=== PATIENT | female | born 1950 | race Caucasian/White ===

== ENCOUNTER → 2019-05-04 18:18 | Outpatient (CLI) | payer MEDICARE ==
[2014-07-27 07:40] VITALS: BMI 42.6
[~2019-05-04 18:18] MED LIST: CYMBALTA60 MG PO; HYDROCODONE-APA1 TAB PO; NEXIUM40 MG PO; ZESTORETIC 20/21 TAB PO
== END | disposition home or self-care (01) ==
LOC: D.LABREF 18:18
PROVIDERS: ATTEND Orthopaedic Surgery
DX: M16.11 Unilateral primary osteoarthritis, right hip (principal)

== ENCOUNTER 2019-05-18 19:32 | Inpatient (IN) | payer MEDICARE ==
[~2019-05-18] VITALS: Ht 160 cm; Wt 90.7 kg
[2019-06-14] MEDS ORDERED: OMEPRAZOLE20 M1 PO (14:09)
[2019-06-14] MEDS ORDERED: FUROSEMIDE20 MG PO (14:09)
[2019-06-14] MEDS ORDERED: CENTRUM SILVER1 EAC3 PO (14:10)
[2019-06-14] MEDS ORDERED: K-DUR20 MEQ PO (14:10)
[2019-06-15 13:09] LABS: BASOPHILS 0.1 % (0-2); EOSINOPHILS 1.7 % (0-7); HEMATOCRIT 39.9 % (36.0-48.0); HEMOGLOBIN 12.3 g/dL (12-16); IMMATURE GRANULOCYTES 0.1 % (0-5); LYMPHOCYTES 24.1 % (15-50); MCH 28.6 pg (26.0-34.0); MCHC 30.8 g/dL (31.0-37.0); MCV 92.8 fL (80.0-100.0); MEAN PLATELET VOLUME 10.2 fL (7.4-10.4); MONOCYTES 8.6 % (2-11); NEUTROPHILS 65.4 % (40-80); RDW 14.8 % (11.5-14.5)
[2019-06-15 13:11] LABS: PLATELET COUNT 325 10x3/uL (130-400)
[2019-06-15 13:18] LABS: APTT 31.2 SECONDS (22.8-39.4); INR 1.03 (0.85-1.17); PROTIME 13.5 SECONDS (11.6-15.0)
[2019-06-15 13:20] LABS: ANION GAP 15.9 mmol/L (8-16); CALCIUM 9.7 mg/dL (8.5-10.1); CARBON DIOXIDE 26.8 mmol/L (21.0-32.0); CREATININE - SERUM 2.7 mg/dL (0.6-1.3); POTASSIUM - SERUM 4.7 mmol/L (3.5-5.1)
[2019-06-15 14:03] LABS: BILIRUBIN NEGATIVE (NEGATIVE); GLUCOSE NEGATIVE (NEGATIVE); KETONE NEGATIVE (NEGATIVE); NITRITE NEGATIVE (NEGATIVE); UROBILINOGEN NORMAL (NORMAL)
[2019-06-15 14:05] LABS: BACTERIA MODERATE /hpf (NEGATIVE); EPITHELIAL CELLS 0-5 /hpf (0-5); WHITE CELLS - URINE 0-5 /hpf (NEGATIVE)
[2019-06-20] VITALS (7 sets, daily range): BP systolic 86–121; BP diastolic 53–85; BMI 37.2; BMI 35.5
--- NOTE | 2019-06-20 14:35 | NUR ---
RECEIVED TO ROOM 2212 VIA BED FROM PACU. A/O X3. C/O INTENSE PAIN TO RIGHT HIP LEVEL 10. REPOSITIONED IN BED FOR COMFORT. ICE APPLIED TO SAME WILL MONITOR. DRESSING TO RIGHT HIP IS DRY AND INTACT. SKIN INTACT OTHERWISE. VSS. DENIES NEEDS.
--- NOTE | 2019-06-20 15:22 | NUR ---
PERCOCET NOT WORKING FOR PAIN MANAGEMENT. DILAUDID SOUS CHEF KITCHEN MANAGER INITIATED AT THIS TIME. PATIENT INSTRUCTED IN USE OF SAME WITH RETURN DEMONSTRATION. WILL MONITOR.
--- NOTE | 2019-06-20 18:12 | NUR ---
ATE ALL OF SUPPER. REPORTS PAIN WELL MANAGED WITH USE OF SERVICE MANAGER. DENIES NEEDS. NO CHANGES NOTED.
--- NOTE | 2019-06-20 19:40 | NUR ---
PATIENT RESTING IN BED WITH NO S/S OF DISTRESS. OFFERED PATIENT BEDPAN AND SHE DECLINED AT THIS TIME. BED IN LOWEST POSITION AND CALL LIGHT WITHIN REACH. ENCOURAGED THE PATIENT TO CALL IF SHE HAS NEEDS. WILL CONTINUE TO MONITOR.
[2019-06-21] VITALS (7 sets, daily range): BP systolic 81–119; BP diastolic 54–70; Ht 160 cm; Wt 90.7 kg
--- NOTE | 2019-06-21 00:11 | NUR ---
PATIENT VOIDED APROX 300ML
[2019-06-21 07:04] LABS: HEMATOCRIT 34.8 % (36.0-48.0); HEMOGLOBIN 10.6 g/dL (12-16); MCH 28.6 pg (26.0-34.0); MCHC 30.5 g/dL (31.0-37.0); MCV 94.1 fL (80.0-100.0); MEAN PLATELET VOLUME 10.4 fL (7.4-10.4); RBC 3.7 10x6/uL (4.00-5.40); RDW 15.1 % (11.5-14.5); WBC 8.3 10x3/uL (4.8-10.8)
--- NOTE | 2019-06-21 08:30 | NUR ---
AWAKE AND ALERT. ORIENTED X3. NO C/O AT THIS TIME. REPORTS GOOD PAIN MANAGEMENT WITH USE OF QUALITY CONTROL COORDINATOR. LUNGS ARE CLEAR BILATERALLY, NO COUGH NOTED. REINSTRUCTED IN USE OF IS WA WITH RETURN DEMONSTRATION. SKIN IS INTACT WTIHOUT REDNESS EXCEPT INCISION TO RIGHT HIP WHICH HAS A DRY INTACT DRESSING IN PLACE. ATE ALMOST ALL OF BREAKFAST TRAY. DENIES NEEDS. IV TO LEFT HAND IS PATENT WITHOUT REDNESS AT INSERTION SITE.
--- NOTE | 2019-06-21 10:00 | NUR ---
UP IN CHIAR AT BEDSIDE WITH PT. DID WELL. NO C/O AT THIS TIME. DENIES NEEDS.
--- NOTE | 2019-06-21 10:32 | NUR ---
REHAB PRESCREENING Rehab referral received and chart reviewed. Ms. Marin has [facility] as her provider. She will need an OT evaluation ordered. Rehab will begin prior authorization process when evaluations are documented. Thank you for this referral! Darling Mcqueen, RESTAURANT CREW PERSON Rehab PD
--- NOTE | 2019-06-21 11:45 | NUR ---
UP TO BSC WITH ONE PERSON MIN ASSIST. VOIDED CLEAR YELLOW URINE WITHOUT DIFFICULTY. SPECIMEN SENT TO LAB.
[2019-06-21 12:50] LABS: BILIRUBIN NEGATIVE (NEGATIVE); GLUCOSE NEGATIVE (NEGATIVE); KETONE NEGATIVE (NEGATIVE); NITRITE NEGATIVE (NEGATIVE); SPECIFIC GRAVITY 1.015 (1.005-1.020); UROBILINOGEN NORMAL (NORMAL)
--- NOTE | 2019-06-21 16:33 | NUR ---
UP TO BR WITH ONE PERSON MIN ASSIST. HAD MODERATE AMOUNT OF DARK STOOL. REPOSITIONED IN BED FOR COMFORT.
--- NOTE | 2019-06-21 17:00 | NUR ---
REFUSED SUPPER TRAY. CONTINUES TO FEEL SICK TO HER STOMACH. DENIES THAT IT IS NAUSEA JUST FEELS SICK. WILL CALL AND GET HER HOME MED STARTED.
--- NOTE | 2019-06-21 17:49 | NUR ---
SPOKE WITH DR. GARCIA. NEW ORDERS FOR PRILOSEC RECEIVED. GIVEN TO PATIENT WILL MONITOR.
--- NOTE | 2019-06-21 18:28 | NUR ---
HAD APPROXIMATELY 150 CC VERY DARK BROWN EMESIS. NO ODOR OF BLOOD AND DOESN'T LOOK LIKE BLOOD. WILL MONITOR. GIVNE 4MG ZOFRAN SUBLINGUAL FOR NAUSEA WILL MONITOR.
--- NOTE | 2019-06-21 19:43 | NUR ---
ASSISTED PATIENT TO AND FROM RR. PATIENT VOIDED. VSS. PATIENT DENIES OTHER NEEDS AT THIS TIME. BED IN LOWEST POSITION AND CALL LIGHT WITHIN REACH. ENCOURAGED THE PATIENT TO CALL IF SHE HAS NEEDS. WILL CONTINUE TO MONITOR.
--- NOTE | 2019-06-21 20:36 | NUR ---
ADMINISTERED MEDS PER ORDERS. PATIENT DENIES OTHER NEEDS AT THIS TIME. WILL CONTINUE TO MONITOR.
[2019-06-22 04:17] VITALS: BP 110/74
[2019-06-22 06:59] LABS: HEMATOCRIT 34.1 % (36.0-48.0); HEMOGLOBIN 10.4 g/dL (12-16); MCH 28.6 pg (26.0-34.0); MCHC 30.5 g/dL (31.0-37.0); MCV 93.7 fL (80.0-100.0); MEAN PLATELET VOLUME 10.3 fL (7.4-10.4); RBC 3.64 10x6/uL (4.00-5.40); RDW 15.1 % (11.5-14.5); WBC 7.2 10x3/uL (4.8-10.8)
[2019-06-22 07:38] VITALS: BP 98/61
--- NOTE | 2019-06-22 10:48 | NUR ---
PT SITTING IN CHAIR AT BEDSIDE AFTER AMBULATING PER THERAPY. STATES PAIN IS CONTROLLABLE. FALL PRECAUTIONS IN PLACE. CALL LIGHT IN REACH. DRESSING TO RIGHT HIP IS CLEAN DRY AND INTACT. STATES STOMACH IS FEELING BETTER TODAY THAN YESTERDAY. HOPING FOR DISCHARGE TO REHAB TODAY. USED INCENTIVE SPIROMETY SEVERAL TIMES THIS AM AND IS PULLING APPROX 1500 CC.
[2019-06-22 11:13] VITALS: BP 108/73
--- NOTE | 2019-06-22 14:16 | NUR ---
Reviewed patient's chart for the ARU today. She is [employer] and would require a preauth. She has ambulated 40 feet with min assist and is able to perform all her ADL's with min assist. She has not had any surgical complications and has no medical necessity that requires a physician to monitor at least three times a week. Discussed at length with the CM Naa Pool RN. Margie Condon RN Clinical Liaison, Rehab
--- NOTE | 2019-06-22 14:24 | NUR ---
OT NOTE: PT COMPLETED SIT TO STAND WITH CGA/MIN A, PT COMPLETED ADL MOB WITH RW WITH MIN A. PT COMPLETED TOILET HYGIENE TASKS WITH MIN A/CGA.. PT COMPLETED HAND HYGIENE WITH SBA. 0-859 THANK YOU,MIRIAM OLIVO
[2019-06-22 15:46] VITALS: BP 95/56
--- NOTE | 2019-06-22 19:20 | NUR ---
LYING IN BED WITH EYES CLOSED. RESP EVEN AND NONLABORED. NO DISTRESS. BED ALARM ON. CL IN REACH.
--- NOTE | 2019-06-22 19:59 | MORECARE ---
CASE MANAGEMENT DISCHARGE SUMMARY PATIENT: JOSE RAMON GUARDADO UNIT: [id number] ADM DATE: 06/20/19 AGE: 68 : 50 SEX: F ROOM/BED: D.1212 AUTHOR: VICK HODGE PHYSICIAN: REFERRING PHYSICIAN: SHELBY GARCIA MD DATE OF SERVICE: 06/22/19 Discharge Plan Patient Name: JOSE RAMON GUARDADO Facility: [facility]:[place] : 1950 Planned Disposition: Inpatient Rehab Anticipated Discharge Date: Discharge Date: Expected LOS: Initial Reviewer: [email or web address] Initial Review Date: 06/20/2019 Generated: 06/22/19 8:59 pm Patient Name: JOSE RAMON GUARDADO Page [id number] at 1958 All edits/amendments must be made on the electronic document DICTATION DATE: 06/22/191958 REAL ESTATE UNDERWRITER: BA 06/22/191958 RPT#: [id number] DC DATE: STATUS: ADM IN [facility] [address] [place] [address] END OF REPORT
[2019-06-22 20:00] VITALS: BP 111/72
--- NOTE | 2019-06-22 20:06 | MORECARE ---
CASE MANAGEMENT DISCHARGE SUMMARY PATIENT: JOSE RAMON GUARDADO UNIT: [id number] ADM DATE: 06/20/19 AGE: 68 : 50 SEX: F ROOM/BED: D.1212 AUTHOR: AYESHA,DOC PHYSICIAN: REFERRING PHYSICIAN: SHELBY GARCIA MD DATE OF SERVICE: 06/22/19 Discharge Plan Patient Name: JOSE RAMON GUARDADO Facility: [facility]:[place] : 1950 Planned Disposition: Inpatient Rehab Anticipated Discharge Date: Discharge Date: Expected LOS: Initial Reviewer: [email or web address] Initial Review Date: 06/20/2019 Generated: 06/22/19 9:06 pm Comments DCP- Discharge Planning Updated by [id number]: Naa Pool on 06/22/19 7:[address] Patient Name: JOSE RAMON GUARDADO Admission Status: Elective Accout number: [id number] Admission Date: 06-20-2019 : 1950 Admission Diagnosis:UNILATERAL PRIMARY OSTEOARTHRITIS, RIGHT HIP Attending: SHELBY GARCIA Current LOS: 2 Anticipated DC Date: Planned Disposition: Inpatient Rehab Primary Insurance: [employer] ADV Discharge Planning Comments: CM met with patient to complete initial dc planning assessment. CM educated patient on the CM role and verbal consent given by patient to complete assessment. Patient lives at home alone where she is independent with her care. At discharge patient plans to return home and feels this is a safe discharge. CM discussed availability of home health, rehab services, and medical equipment. Her son will be her local intermodal truck driver home. Patient has a walker, bedside commode and shower stool. [facility] signed for inpatient rehab Patient denied known discharge needs at this time. CM will continue to follow and will assist as needed with dc plans/needs. Road Mixer Operator: Naa Pool DCPIA - Discharge Planning Initial Assessment Updated by [id number]: Naa Pool on 06/22/19 8:01 pm * Is the patient Alert and Oriented? Yes * How many steps to enter\exit or inside your home? ramp * PCP HURST * Pharmacy [facility] * Preadmission Environment Home Alone * ADLs Independent * Other Equipment BSC, WALKER, SC * List name and contact numbers for known caregivers / representatives who currently or will assist patient after discharge: ZA ZHAO LINDA - [phone] * Verbal permission to speak to the caregivers and representatives has been obtained from the patient. Yes * Community resources currently utilized None * Additional services required to return to the preadmission environment? No * Can the patient safely return to the preadmission environment? Yes * Has this patient been hospitalized within the prior 30 days at any hospital? No Last DP export: 06/22/19 6:59 pm Patient Name: JOSE RAMON GUARDADO Page 13613 at 2006 All edits/amendments must be made on the electronic document DICTATION DATE: 06/22/192005 ACADEMIC AFFAIRS DEAN: BA 06/22/192005 RPT#: [id number] DC DATE: STATUS: ADM IN [facility] [address] [place] [address] END OF REPORT
--- NOTE | 2019-06-22 20:13 | MORECARE ---
CASE MANAGEMENT DISCHARGE SUMMARY PATIENT: JOSE RAMON GUARDADO UNIT: [id number] ADM DATE: 06/20/19 AGE: 68 : 50 SEX: F ROOM/BED: D.1212 AUTHOR: AYESHA,DOC PHYSICIAN: REFERRING PHYSICIAN: SHELBY GARCIA MD DATE OF SERVICE: 06/22/19 Discharge Plan Patient Name: JOSE RAMON GUARDADO Facility: [facility]:[place] : 1950 Planned Disposition: Inpatient Rehab Anticipated Discharge Date: Discharge Date: Expected LOS: Initial Reviewer: [email or web address] Initial Review Date: 06/20/2019 Generated: 06/22/19 9:12 pm Comments DCP- Discharge Planning Updated by [id number]: Naa Pool on 06/22/19 7:[address] CM received a call from Margie earlier today that patient has been denied inpatient rehab. CM will need to speak to patient regarding a new plan for discharge. CM will continue to follow and assist as needed with discharge planning / needs. DCP- Discharge Planning Updated by [id number]: Naa Pool on 06/22/19 7:[address] Patient Name: JOSE RAMON GUARDADO Admission Status: Elective Accout number: [id number] Admission Date: 06-20-2019 : 1950 Admission Diagnosis:UNILATERAL PRIMARY OSTEOARTHRITIS, RIGHT HIP Attending: SHELBY GARCIA Current LOS: 2 Anticipated DC Date: Planned Disposition: Inpatient Rehab Primary Insurance: [employer] ADV Discharge Planning Comments: CM met with patient to complete initial dc planning assessment. CM educated patient on the CM role and verbal consent given by patient to complete assessment. Patient lives at home alone where she is independent with her care. At discharge patient plans to return home and feels this is a safe discharge. CM discussed availability of home health, rehab services, and medical equipment. Her son will be her dedicated intermodal truck driver home. Patient has a walker, bedside commode and shower stool. [facility] signed for inpatient rehab Patient denied known discharge needs at this time. CM will continue to follow and will assist as needed with dc plans/needs. Process Excellence Manager: Naa Pool DCPIA - Discharge Planning Initial Assessment Updated by [email or web address]: Naa Pool on 06/22/19 8:01 pm * Is the patient Alert and Oriented? Yes * How many steps to enter\exit or inside your home? ramp * PCP REGINALD * Pharmacy [facility] * Preadmission Environment Home Alone * ADLs Independent * Other Equipment BSC, WALKER, SC * List name and contact numbers for known caregivers / representatives who currently or will assist patient after discharge: ZA MCKEON - [phone] * Verbal permission to speak to the caregivers and representatives has been obtained from the patient. Yes * Community resources currently utilized None * Additional services required to return to the preadmission environment? No * Can the patient safely return to the preadmission environment? Yes * Has this patient been hospitalized within the prior 30 days at any hospital? No Coverage Notice Reviewer: [id number] - Naa Pool Notice Issued Date-Time: 06/22/2019 20:07 Notice Type: Patient Choice Letter Notice Delivered To: Patient Relationship to Patient: Self Chicken Dresser Name: Delivery Method: HAND - Hand Delivered Jeannette Days: Prior Verbal Notification: Recipient Understood Notice: Yes Recipient Signature: Yes Med Rec Note Co-signed by Attending: Coverage Notice Comment: inpatient rehab Last DP export: 06/22/19 7:06 pm Patient Name: JOSE RAMON GUARDADO Page [id number] at 2013 All edits/amendments must be made on the electronic document DICTATION DATE: 06/22/192011 AIRPLANE CAPTAIN: BA 06/22/19 2012 RPT#: [id number] DC DATE: STATUS: ADM IN [facility] [address] [place] [address] END OF REPORT
--- NOTE | 2019-06-22 21:00 | NUR ---
ASSISTED UP TO BR TO VOID. C/O PAIN IN RT HIP 6. MEDICATED WITH PERCOCET ORDERED. DRSG TO RT HIP IS C/D/I. EDEMA NOTED TO BLE. SCDS IN USE BILAT. AMB WITH WALKER WITH STANDBY ASSIST. SALINE LOCK NOTED TO LT HAND. RESP EVEN AND NONLABORED. ENCOURAGED TO USE I.S. SHE VERBALIZED UNDERSTANDING. BED ALARM IN USE. ALERT AND ORIENTED X4. SR ELEVATED X2. CL IN REACH.
[2019-06-23 00:30] VITALS: BP 118/61
--- NOTE | 2019-06-23 01:16 | NUR ---
ASSISTED UP TO BR TO VOID. MEDICATED WITH PERCOCET FOR C/O RT HIP PAIN. CL IN REACH. GREGORIO ALARM ON.
[2019-06-23 04:32] VITALS: BP 97/56
--- NOTE | 2019-06-23 04:47 | NUR ---
RESTING IN BED WITH EYES CLOSED. RESP NONLABORED. NO DISTRESS. CL IN REACH.
--- NOTE | 2019-06-23 07:30 | NUR ---
AWAKE AND ALERT. ORIENTED X3. NO C/O AT THIS TIME. LUNGS ARE CLEAR BILATERALLY NO COUGH NOTED. NO NAUSEA THIS AM. SKIN IS INTACT WITHOUT REDNESS EXCEPT INCISION TO RIGHT HIP WHICH HAS A DRY INTACT DRESSING IN PLACE. SL TO LEFT HAND IS PATENT WITHOUT REDNESS AT INSERTION SITE. DENIES NEEDS.
[2019-06-23 07:43] VITALS: BP 128/62; BP 98/63
[2019-06-23] MEDS ORDERED: PERCOCET 10-321 EAC1 PO (08:59)
[2019-06-23] MEDS ORDERED: ELIQUIS2.5 MG PO (08:59)
--- NOTE | 2019-06-23 09:15 | NUR ---
ATE MOST OF BREAKFAST. TOOK AM MEDS WITHOUT DIFFICULTY. UP TO CHAIR AT BEDSIDE.. DENIES NEEDS.
--- NOTE | 2019-06-23 11:02 | NUR ---
AMBULATED TO BR WITH RW SBA. VOIDED WITHOUT DIFFICULTY. POSITIONED IN CHAIR AT BEDSIDE FOR COMFORT. DENIES NEEDS.
[2019-06-23 11:44] VITALS: BP 101/72
--- NOTE | 2019-06-23 12:16 | MORECARE ---
CASE MANAGEMENT DISCHARGE SUMMARY PATIENT: JOSE RAMON GUARDADO UNIT: [id number] ADM DATE: 06/20/19 AGE: 68 : 50 SEX: F ROOM/BED: D.1212 AUTHOR: AYESHA,DOC PHYSICIAN: REFERRING PHYSICIAN: SHELBY GARCIA MD DATE OF SERVICE: 06/23/19 Discharge Plan Patient Name: JOSE RAMON GUARDADO Facility: [facility]:[place] : 1950 Planned Disposition: Inpatient Rehab Anticipated Discharge Date: Discharge Date: Expected LOS: Initial Reviewer: [id number] Initial Review Date: 06/20/2019 Generated: 06/23/19 1:16 pm Comments DCP- Discharge Planning Updated by [id number]: Naa Pool on 06/22/19 7:[address] CM received a call from Margie earlier today that patient has been denied inpatient rehab. CM will need to speak to patient regarding a new plan for discharge. CM will continue to follow and assist as needed with discharge planning / needs. DCP- Discharge Planning Updated by [id number]: Naa Pool on 06/22/19 7:[address] Patient Name: JOSE RAMON GUARDADO Admission Status: Elective Accout number: [id number] Admission Date: 06-20-2019 : 1950 Admission Diagnosis:UNILATERAL PRIMARY OSTEOARTHRITIS, RIGHT HIP Attending: SHELBY GARCIA Current LOS: 2 Anticipated DC Date: Planned Disposition: Inpatient Rehab Primary Insurance: [employer] ADV Discharge Planning Comments: CM met with patient to complete initial dc planning assessment. CM educated patient on the CM role and verbal consent given by patient to complete assessment. Patient lives at home alone where she is independent with her care. At discharge patient plans to return home and feels this is a safe discharge. CM discussed availability of home health, rehab services, and medical equipment. Her son will be her bus van driver home. Patient has a walker, bedside commode and shower stool. [facility] signed for inpatient rehab Patient denied known discharge needs at this time. CM will continue to follow and will assist as needed with dc plans/needs. Wet Machine Cutter: Naa Pool DCPIA - Discharge Planning Initial Assessment Updated by [email or web address]: Naa Pool on 06/22/19 8:01 pm * Is the patient Alert and Oriented? Yes * How many steps to enter\exit or inside your home? ramp * PCP REGINALD * Pharmacy [facility] * Preadmission Environment Home Alone * ADLs Independent * Other Equipment BSC, WALKER, SC * List name and contact numbers for known caregivers / representatives who currently or will assist patient after discharge: ZA MCKEON - [phone] * Verbal permission to speak to the caregivers and representatives has been obtained from the patient. Yes * Community resources currently utilized None * Additional services required to return to the preadmission environment? No * Can the patient safely return to the preadmission environment? Yes * Has this patient been hospitalized within the prior 30 days at any hospital? No External Providers External Provider: [facility] Next Contact Date: Service Request Date: Service Type: Resolution: Reviewer: Comments: External Provider: [facility] Next Contact Date: Service Request Date: Service Type: Resolution: Reviewer: Comments: Coverage Notice Reviewer: [id number] - Naa Pool Notice Issued Date-Time: 06/22/2019 20:07 Notice Type: Patient Choice Letter Notice Delivered To: Patient Relationship to Patient: Self Diecast Machine Operator Name: Delivery Method: HAND - Hand Delivered Jeannette Days: Prior Verbal Notification: Recipient Understood Notice: Yes Recipient Signature: Yes Med Rec Note Co-signed by Attending: Coverage Notice Comment: inpatient rehab Last DP export: 06/22/19 7:13 pm Patient Name: JOSE RAMON GUARDADO Page [id number] at 1216 All edits/amendments must be made on the electronic document DICTATION DATE: 06/23/19 1216 PARTY PLAN SALES AGENT: BA 06/23/19 1216 RPT#: [id number] DC DATE: STATUS: ADM IN [facility] [address] [place] [address] END OF REPORT
--- NOTE | 2019-06-23 12:43 | NUR ---
ALL DISCHARGE INSTRUCTIONS COVERED WITH PT. ALL QUESTIONS ANSWERED. PT REQUESTS PT TO EDUCATE ON APPROPRIATE MANEUVERING OF STAIRS PRIOR TO LEAVING. PT PAGED AND NOTIFIED OF PT REQUEST. PIV TO LEFT HAND REMOVED CATHETER TIP INTACT. DRESSING APPLIED. ALL DISCHARGE PAPERS SIGNED AND PLACED IN PT CHART. PT DENIES FURTHER QUESTIONS/CONCERNS/NEEDS AT THIS TIME.
--- NOTE | 2019-06-23 13:43 | NUR ---
[place] WITH PT AT BEDSIDE ADDRESSING CONCERNS PERTAINING TO STAIRS/STEPS AT HOME. DRESSING CHANGED PER ORDER. EXTRA SUPPLIES WITH PT BELONGINGS.
--- NOTE | 2019-06-23 15:26 | NUR ---
PT DAUGHTER IN LAW AT FRONT ENTRANCE. PT ESCORTED FROM ROOM VIA WHEELCHAIR. ALL PERSONAL BELONGINGS WITH PT. PT THANKS THIS NURSE FOR CARE GIVEN DURING THIS SHIFT AND DENIES FURTHER QUESTIONS/CONCERNS/NEEDS AT THIS TIME.
--- NOTE | 2019-06-23 18:28 | MORECARE ---
CASE MANAGEMENT DISCHARGE SUMMARY PATIENT: JOSE RAMON GUARDADO UNIT: [id number] ADM DATE: 06/20/19 AGE: 68 : 50 SEX: F ROOM/BED: D.1212 AUTHOR: AYESHA,DOC PHYSICIAN: REFERRING PHYSICIAN: SHELBY GARCIA MD DATE OF SERVICE: 06/23/19 Discharge Plan Patient Name: JOSE RAMON GUARDADO Facility: [facility]:[place] : 1950 Planned Disposition: Inpatient Rehab Anticipated Discharge Date: Discharge Date: 06/23/2019 Expected LOS: Initial Reviewer: [id number] Initial Review Date: 06/20/2019 Generated: 06/23/19 7:27 pm Comments DCP- Discharge Planning Updated by [id number]: Naa Pool on 06/22/19 7:[address] CM received a call from [place] earlier today that patient has been denied inpatient rehab. CM will need to speak to patient regarding a new plan for discharge. CM will continue to follow and assist as needed with discharge planning / needs. DCP- Discharge Planning Updated by [id number]: Naa Pool on 06/22/19 7:[address] Patient Name: JOSE RAMON GUARDADO Admission Status: Elective Accout number: [id number] Admission Date: 06-20-2019 : 1950 Admission Diagnosis:UNILATERAL PRIMARY OSTEOARTHRITIS, RIGHT HIP Attending: SHELBY GARCIA Current LOS: 2 Anticipated DC Date: Planned Disposition: Inpatient Rehab Primary Insurance: [employer] ADV Discharge Planning Comments: CM met with patient to complete initial dc planning assessment. CM educated patient on the CM role and verbal consent given by patient to complete assessment. Patient lives at home alone where she is independent with her care. At discharge patient plans to return home and feels this is a safe discharge. CM discussed availability of home health, rehab services, and medical equipment. Her son will be her electric screw driver operator home. Patient has a walker, bedside commode and shower stool. [facility] signed for inpatient rehab Patient denied known discharge needs at this time. CM will continue to follow and will assist as needed with dc plans/needs. Hardware Designer: Naa Yrn DCPIA - Discharge Planning Initial Assessment Updated by [email or web address]: Naa Pool on 06/22/19 8:01 pm * Is the patient Alert and Oriented? Yes * How many steps to enter\exit or inside your home? ramp * PCP REGINALD * [facility] * Preadmission Environment Home Alone * ADLs Independent * Other Equipment BSC, WALKER, SC * List name and contact numbers for known caregivers / representatives who currently or will assist patient after discharge: ZA ZHAO [facility] - [phone] * Verbal permission to speak to the caregivers and representatives has been obtained from the patient. Yes * Community resources currently utilized None * Additional services required to return to the preadmission environment? No * Can the patient safely return to the preadmission environment? Yes * Has this patient been hospitalized within the prior 30 days at any hospital? No Coverage Notice Reviewer: [id number] Jahaira Pool Notice Issued Date-Time: 06/22/2019 20:07 Notice Type: Patient Choice Letter Notice Delivered To: Patient Relationship to Patient: Self Tank Assembler Name: Delivery Method: HAND - Hand Delivered Jeannette Days: Prior Verbal Notification: Recipient Understood Notice: Yes Recipient Signature: Yes Med Rec Note Co-signed by Attending: Coverage Notice Comment: inpatient rehab Reviewer: [id number] Jahaira Pool Notice Issued Date-Time: 06/22/2019 12:10 Notice Type: IM Discharge Notice Notice Delivered To: Patient Relationship to Patient: Self Tank Assembler Name: Delivery Method: HAND - Hand Delivered Jeannette Days: Prior Verbal Notification: Recipient Understood Notice: Yes Recipient Signature: Yes Med Rec Note Co-signed by Attending: Coverage Notice Comment: Last DP export: 06/23/19 11:17 am Patient Name: JOSE RAMON GUARDADO Page [id number] at 1828 All edits/amendments must be made on the electronic document DICTATION DATE: 06/23/191826 EQUIPMENT ENGINEERING TECHNICIAN: BA 06/23/191826 RPT#: [id number] DC DATE:06/23/19 STATUS: DIS [place] [address] [place] [address] END OF REPORT
--- NOTE | 2019-06-23 18:35 | MORECARE ---
CASE MANAGEMENT DISCHARGE SUMMARY PATIENT: JOSE RAMON GUARDADO UNIT: [id number] ADM DATE: 06/20/19 AGE: 68 : 50 SEX: F ROOM/BED: D.1212 AUTHOR: AYESHA,DOC PHYSICIAN: REFERRING PHYSICIAN: SHELBY GARCIA MD DATE OF SERVICE: 06/23/19 Discharge Plan Patient Name: JOSE RAMON GUARDADO Facility: [facility]:[place] : 1950 Planned Disposition: Inpatient Rehab Anticipated Discharge Date: Discharge Date: 06/23/2019 Expected LOS: Initial Reviewer: [email or web address] Initial Review Date: 06/20/2019 Generated: 06/23/19 7:34 pm Comments DCP- Discharge Planning Updated by [email or web address]: Naa Pool on 06/23/19 5:[address] CM SPOKE WITH PATIENT AND SET UP [facility] FOR PHYSICAL THERAPY AND WOUND CARE. PATIENT WILL BE GOING HOME WITH HER SON FOR A WHILE. CM SET UP FOR PATIENT TO GET BSC AT [facility]. IMM SIGNED 06/21 DENIES ANY OTHER D/C NEEDS DCP- Discharge Planning Updated by [email or web address]: Naa Pool on 06/22/19 7:[address] CM received a call from Margie earlier today that patient has been denied inpatient rehab. CM will need to speak to patient regarding a new plan for discharge. CM will continue to follow and assist as needed with discharge planning / needs. DCP- Discharge Planning Updated by [email or web address]: Naa Pool on 06/22/19 7:[address] Patient Name: JOSE RAMON GUARDADO Admission Status: Elective Accout number: [id number] Admission Date: 06-20-2019 : 1950 Admission Diagnosis:UNILATERAL PRIMARY OSTEOARTHRITIS, RIGHT HIP Attending: SHELBY GARCIA Current LOS: 2 Anticipated DC Date: Planned Disposition: Inpatient Rehab Primary Insurance: [employer] ADV Discharge Planning Comments: CM met with patient to complete initial dc planning assessment. CM educated patient on the CM role and verbal consent given by patient to complete assessment. Patient lives at home alone where she is independent with her care. At discharge patient plans to return home and feels this is a safe discharge. CM discussed availability of home health, rehab services, and medical equipment. Her son will be her bottom hoop driver home. Patient has a walker, bedside commode and shower stool. CATA signed for inpatient rehab Patient denied known discharge needs at this time. CM will continue to follow and will assist as needed with dc plans/needs. Audograph Operator: Naa Pool DCPIA - Discharge Planning Initial Assessment Updated by [email or web address]: Naa Pool on 06/22/19 8:01 pm * Is the patient Alert and Oriented? Yes * How many steps to enter\exit or inside your home? ramp * PCP [facility] * Pharmacy [facility] * Preadmission Environment Home Alone * ADLs Independent * Other Equipment BSC, WALKER, SC * List name and contact numbers for known caregivers / representatives who currently or will assist patient after discharge: ZA MCKEON - [phone] * Verbal permission to speak to the caregivers and representatives has been obtained from the patient. Yes * Community resources currently utilized None * Additional services required to return to the preadmission environment? No * Can the patient safely return to the preadmission environment? Yes * Has this patient been hospitalized within the prior 30 days at any hospital? No Coverage Notice Reviewer: [id number] Jahaira Pool Notice Issued Date-Time: 06/22/2019 20:07 Notice Type: Patient Choice Letter Notice Delivered To: Patient Relationship to Patient: Self Radio Time Buyer Name: Delivery Method: HAND - Hand Delivered Jeannette Days: Prior Verbal Notification: Recipient Understood Notice: Yes Recipient Signature: Yes Med Rec Note Co-signed by Attending: Coverage Notice Comment: inpatient rehab Reviewer: [email or web address] Jahaira Pool Notice Issued Date-Time: 06/22/2019 12:10 Notice Type: IM Discharge Notice Notice Delivered To: Patient Relationship to Patient: Self Radio Time Buyer Name: Delivery Method: HAND - Hand Delivered Jeannette Days: Prior Verbal Notification: Recipient Understood Notice: Yes Recipient Signature: Yes Med Rec Note Co-signed by Attending: Coverage Notice Comment: Last DP export: 06/23/19 5:28 pm Patient Name: JOSE RAMON GUARDADO Page [id number] at 1835 All edits/amendments must be made on the electronic document DICTATION DATE: 06/23/191833 DIPLOMATIC INTERPRETER/TRANSLATOR: BA 06/23/191833 RPT#: [id number] DC DATE:06/23/19 STATUS: DIS IN [facility] [address] [place] [address] END OF REPORT
== END 2019-06-23 15:27 | disposition home health service (06) | DRG 470 ==
LOC: D.M3 06-20 08:56 → D.SDCHOLD 06-20 08:56 → D.M3 06-20 14:08 → D.SDCHOLD 06-20 16:30 → D.M3 06-23 15:27
PROVIDERS: ADMIT Orthopaedic Surgery; ATTEND Orthopaedic Surgery
PROC: 0SR90JZ Replacement of Right Hip Joint with Synthetic Substitute, Open Approach (ICD-10-PCS; principal; 2019-06-20 10:30)
DX: M16.11 Unilateral primary osteoarthritis, right hip (principal); I10 Essential (primary) hypertension; Z87.891 Personal history of nicotine dependence

== ENCOUNTER → 2019-07-25 23:12 | Outpatient (CLI) | payer MEDICARE ==
[2019-06-21 13:36] VITALS: BMI 35.4
[~2019-07-25 23:12] MED LIST changes: +CENTRUM SILVER1 EAC3 PO; +ELIQUIS2.5 MG PO; +FUROSEMIDE20 MG PO; +K-DUR20 MEQ PO; +OMEPRAZOLE20 M1 PO; +PERCOCET 10-321 EAC1 PO
[2019-07-26 01:18] LABS: HEMATOCRIT 34.4 % (36.0-48.0); MCH 27.2 pg (26.0-34.0); MCHC 29.1 g/dL (31.0-37.0); MCV 93.5 fL (80.0-100.0); MEAN PLATELET VOLUME 10.4 fL (7.4-10.4); RBC 3.68 10x6/uL (4.00-5.40); RDW 15.1 % (11.5-14.5); WBC 7.3 10x3/uL (4.8-10.8)
[2019-07-26 01:21] LABS: PLATELET COUNT 338 10x3/uL (130-400)
[2019-07-26 09:33] LABS: ANISOCYTOSIS OCC; EOSINOPHILS 3 % (0-7); LYMPHOCYTES 27 % (15-50); MONOCYTES 8 % (2-11); NEUTROPHILS 62 % (40-80); PLATELET ESTIMATE NORMAL; ROULEAUX OCC
== END | disposition home or self-care (01) ==
LOC: D.LABREF 23:12
PROVIDERS: ATTEND Legal Medicine
DX: I10 Essential (primary) hypertension (principal)

== ENCOUNTER → 2020-05-21 13:51 | Outpatient (CLI) | payer MEDICARE | END | disposition home or self-care (01) | LOC: D.MRI 13:51 | DX: M54.16 Radiculopathy, lumbar region (principal) ==